=== PATIENT | female | born 1940 | race Caucasian/White ===

== ENCOUNTER → 2020-05-24 09:56 | Outpatient (BNVA) | payer MEDICARE, OTHER, SELFPAY | PROVIDERS: PCP Nurse Practitioner Family; Referring Provider Nurse Practitioner Family; Visit Provider Nurse Practitioner Adult Health | DX: G56.03 Carpal tunnel syndrome, bilateral upper limbs (principal) | CPT/HCPCS: 95909; 99203 ==

== ENCOUNTER → 2023-12-14 02:19 | Outpatient (CLI) | payer MEDICARE, OTHER, SELFPAY ==
--- NOTE | 2023-12-14 | DI.NM_ITS ---
APPROVED REPORT Exam: Pharmacologic Patient Location: Out-Patient Room/Bed: Stress Nurse: Frances Kirkland RN Ordering Provider:JEREMÍAS FINLEY, Contact Number: [phone] BMI: 32.18 Baseline Rhythm: Sinus Rhythm Comment: 1st degree AV block Indications: Chest pain Medical History Medical History: HTN, cerebral ischemia, dizziness, HLD, goiter, GERD, CKD stage 3, murmur Cardiac Medications: Amlodipine, aspirin, atorvastatin, famotidine, levothyroxine, losartan, meclizin em, metoprolol tartrate, omeprazole Allergies: NKA Cardiac Risk Factors: Family hx, HTN, HLD Previous Cardiac Procedures: None Pretest Chest Pain Characteristics: None Exercise History: Indeterminate Physical Disabilities: Bilateral knees Lung Sounds: Clear to auscultation Heart Sounds: Regular Stress Test Details Test: Pharmacologic stress testing performed using 0.4 mg of regadenoson per 5 mL given IV over 10 s econds. Reason for pharmacologic stress test: physical limitation. Nuclear Acquisition: Rest Tc-99m/Stress Tc-99m 1 day Rest Isotope: Tc-99m Sestamibi. Dose: 10.1 Date: 12/14/2023 Injection Time: 1100 Stress Isotope: Tc-99m Sestamibi. Dose: 31.5 Date: 12/14/2023 Injection Time: 1235 HR Resting HR Supine: 60 bpm Max Heart Rate (APMHR): 139.321979 bpm Target HR (85% APMHR): 118.719817 bpm Max HR Achieved: 81 bpm % of APMHR: 58.27 Recovery HR: 76 bpm BP Resting BP Supine: 138/64 mmHg Max BP: 140/68 mmHg Recovery BP: 128/68 mmHg ECG Resting ECG: Sinus Rhythm, 1st degree AV block Stress ECG: Sinus Rhythm, 1st degree AV block ST Change: Nondiagnostic low heart rate Recovery ECG: Sinus Rhythm, 1st degree AV block Recovery ST Change: Nondiagnostic low heart rate Clinical Angina Score: None Rate Pressure Product: 12556 Stress Test Summary STAGE HR BP SpO2 Symptoms NOTES Supine 60 138/64 1 min post Lexiscan injection 74 140/68 94% 3 min post Lexiscan injection 80 134/60 98 6 min post Lexiscan injection 76 128/68 98 MPI Conclusion Myocardial perfusion is normal. There is no ischemia or evidence of prior infarction EF 78%. LV is small and hyperdynamic Radiologist Interpretation Radiologist agrees with Java Application Engineer's Interpretation. Radiologist Interpretation by: Afua Guidry MD Interpretation Date/Time: 12/14/2023 15:30:02
[2023-12-14] MEDS: Regadenoson 0.4 MG/5 ML SYR IVP (13:55)
== END ==
PROVIDERS: Visit Provider Internal Medicine
DX: R07.9 Chest pain, unspecified (principal); R06.09 Other forms of dyspnea
CPT/HCPCS: 78452; 93016; 93018; 93017; J2785